=== PATIENT | female | born 1995 ===

== ENCOUNTER 2020-08-28 13:35 | Outpatient (CLI) | payer OTHER, SELFPAY ==
[2020-08-28 14:37] LABS: SARS-CoV-2 RNA PCR Positive (Negative)
== END 2020-08-28 13:36 | disposition home or self-care (01) ==
PROVIDERS: PCP Internal Medicine; Visit Provider Internal Medicine
DX: U07.1 COVID-19 (principal)
CPT/HCPCS: C9803; U0003; U0005